=== PATIENT | male | born 1960 | race Caucasian/White ===

== ENCOUNTER 2024-06-02 06:46 | Day surgery (SDC) | payer BC, MEDICAID ==
[2024-06-02] MEDS ORDERED: fentaNYL 50 MCG/ML SDV ONE (07:03)
[2024-06-02] MEDS ORDERED: Midazolam 1 MG/ML 2 ML SDV ONE (07:03)
[2024-06-02] MEDS ORDERED: Propofol 200 MG/20 ML SDV ONE ×2 (07:03→08:07)
[2024-06-02] MEDS: Lactated Ringers 1,000 ML IV SCH (07:30)
== END 2024-06-02 09:34 | disposition home or self-care (01) ==
LOC: JP.SDS 06:46
PROVIDERS: ATTEND Surgery
DX: Z12.11 Encounter for screening for malignant neoplasm of colon (principal); D12.4 Benign neoplasm of descending colon; D12.5 Benign neoplasm of sigmoid colon; K57.30 Diverticulosis of large intestine without perforation or abscess without bleeding
CPT/HCPCS: 00811; 45385; 88305; J2250; J2704; J3010; J7120

== ENCOUNTER 2024-08-18 08:46 | Emergency (ER) | payer MEDICAID, MEDICARE | END 2024-08-18 09:58 | disposition home or self-care (01) | LOC: JP.ED 08:46 | DX: R33.9 Retention of urine, unspecified (principal); Z86.16 Personal history of COVID-19; Z88.0 Allergy status to penicillin | CPT/HCPCS: 51702; 99282; 99283 ==